=== PATIENT | female | born 1985 | race Two or more races ===

== ENCOUNTER 2023-04-07 19:05 | Emergency (ER) | payer MEDICAID ==
[~2023-04-07] VITALS: Ht 172.7 cm; Wt 123.0 kg
[2023-04-07 19:30] VITALS: O2SAT 98
[2023-04-07] MEDS ORDERED: FLUC150T46 MT (20:26)
[2023-04-07 21:56] VITALS: BP 138/88; PULSE 98; RESP 14; TEMP 98.5
== END 2023-04-07 21:57 | disposition home or self-care (01) ==
LOC: ER 19:05
DX: B37.31 Acute candidiasis of vulva and vagina (principal); E11.9 Type 2 diabetes mellitus without complications
CPT/HCPCS: 99283